=== PATIENT | female | born 1955 | race Caucasian/White ===

== ENCOUNTER → 2018-04-25 | Outpatient (REF) | payer OTHER | LOC: M LAB REF 18:16 | DX: C50.911 Malignant neoplasm of unspecified site of right female breast (principal) ==

== ENCOUNTER 2018-06-05 11:29 | Outpatient (RCR) | payer OTHER | END 2018-06-19 | LOC: M PT 11:29 | DX: Z51.89 Encounter for other specified aftercare (principal); I89.0 Lymphedema, not elsewhere classified; C50.111 Malignant neoplasm of central portion of right female breast; Z17.0 Estrogen receptor positive status [ER+]; Z98.890 Other specified postprocedural states; Z91.89 Other specified personal risk factors, not elsewhere classified | CPT/HCPCS: 97163 ==

== ENCOUNTER → 2018-06-06 | Outpatient (CLI) | payer OTHER ==
[~2018-06-06] MED LIST: GASTROGRAFIN SOLUTION 30ML (Q9963) As Ordered; ISOVUE-370 76% 100ML VIAL (Q9967) As Ordered
== END ==
LOC: M RAD 07:30
DX: R10.31 Right lower quadrant pain (principal); C50.919 Malignant neoplasm of unspecified site of unspecified female breast; K76.89 Other specified diseases of liver
CPT/HCPCS: Q9963

== ENCOUNTER → 2018-06-06 | Outpatient (CLI) | payer OTHER | LOC: M RAD 07:27 | DX: J32.0 Chronic maxillary sinusitis (principal); J34.2 Deviated nasal septum | CPT/HCPCS: 70486 ==

== ENCOUNTER → 2018-06-07 | Outpatient (CLI) | payer OTHER | LOC: M ONCR 13:55 | DX: C50.911 Malignant neoplasm of unspecified site of right female breast (principal); Z17.0 Estrogen receptor positive status [ER+] | CPT/HCPCS: G0463 ==

== ENCOUNTER 2018-06-25 10:08 | Outpatient (RCR) | payer OTHER | END 2018-07-20 | LOC: M ONCR 10:08 | DX: C50.411 Malignant neoplasm of upper-outer quadrant of right female breast (principal); Z98.890 Other specified postprocedural states | CPT/HCPCS: 77300 ==

== ENCOUNTER → 2018-08-15 | Outpatient (CLI) | payer OTHER | LOC: M ONCR 11:29 | DX: C50.411 Malignant neoplasm of upper-outer quadrant of right female breast (principal) | CPT/HCPCS: G0463 ==

== ENCOUNTER → 2018-10-01 | Outpatient (CLI) | payer OTHER ==
[~2018-10-01] MED LIST changes: -GASTROGRAFIN SOLUTION 30ML (Q9963) As Ordered
== END ==
LOC: M RAD 07:34
DX: R91.1 Solitary pulmonary nodule (principal); J70.1 Chronic and other pulmonary manifestations due to radiation; R05 Cough; Z85.3 Personal history of malignant neoplasm of breast
CPT/HCPCS: Q9967

== ENCOUNTER → 2018-10-03 | Outpatient (REF) | payer OTHER ==
[2018-10-03 12:44] LABS: VITAMIN B12 LEVEL 456 PG/ML (247-911)
== END ==
LOC: M LAB REF 12:02
DX: L65.8 Other specified nonscarring hair loss (principal)

== ENCOUNTER → 2021-04-15 | Outpatient (CLI) | payer MEDICARE, OTHER ==
[~2021-04-15] MED LIST changes: +ANAS1TAB2 PO; +CVS1TAB PO; +CYMB1CAP5 PO; +EXEM25TA PO; -ISOVUE-370 76% 100ML VIAL (Q9967) As Ordered; +ISOVUE-370 76% 100ML VIAL As Ordered ONE; +LETR2.5T2 PO; +LORA-674 PO; +NAPR220C14 PO; +SILV40CR EXT; +TRIA37.53 PO; +ZOLP6.2517 PO
--- NOTE | 2021-04-15 15:44 | REPVR ---
PROCEDURE INFORMATION: Exam: CT Chest With Contrast; Diagnostic Exam date and time: 04/15/2021 3:12 PM Age: 66 years old Clinical indication: Cough TECHNIQUE: Imaging protocol: Diagnostic computed tomography of the chest with contrast. 3D rendering (Not supervised by radiologist): MIP and/or 3D reconstructed images were created by the technologist. Radiation optimization: All CT scans at this facility use at least one of these dose optimization techniques: automated exposure control; mA and/or kV adjustment per patient size (includes targeted exams where dose is matched to clinical indication); or iterative reconstruction. Contrast material: ISOVUE 370; Contrast volume: 75 ml; Contrast route: INTRAVENOUS (IV); COMPARISON: CT Chest with contrast 10/01/2018 7:51 AM FINDINGS: Thyroid: Poorly characterized 1.3 cm right thyroid nodule. Lungs: Hyperinflation and interstitial prominence. Stable bilateral subcentimeter nodules including 2 mm right upper lobe, 3 mm left lower lobe, and 6 mm left lower lobe nodules. Based on 2+ years of interval stability, no follow-up imaging is required. Pleural spaces: No pleural effusion. Heart: Coronary artery calcification. Aorta: Ectasia of the thoracic aorta. Lymph nodes: Subcentimeter lymph nodes. Upper abdomen: Fatty infiltration of the liver. Wall thickening in the nondistended stomach. Bones/joints: Schmorl's nodes and mild degenerative change. Soft tissues: Surgical clips in the right axilla. Punctate right breast calcifications. IMPRESSION: 1. Hyperinflation, interstitial prominence, and stable subcentimeter pulmonary nodules 2. Additional findings as described above. COMMENTS: Consistent with the [employer]'s Incidental Findings Committee white paper (J Am Joey Radiol 2015): In patients aged 35 years and older with an incidental thyroid nodule equal to or greater than 1.[address], MRI or extrathyroidal US, further evaluation with dedicated thyroid US is recommended for patients with normal life expectancy and without comorbidities. For smaller nodules without suspicious features, no further evaluation or follow up is recommended. Electronically signed by: Yordy Jaramillo On 04/15/2021 15:44:02 PM
== END ==
LOC: M RAD 14:43
PROVIDERS: ATTEND Internal Medicine
DX: R05 Cough (principal); R91.8 Other nonspecific abnormal finding of lung field
CPT/HCPCS: 71260; Q9967

== ENCOUNTER → 2021-04-30 | Outpatient (CLI) | payer MEDICARE, OTHER ==
[~2021-04-30] MED LIST changes: -ISOVUE-370 76% 100ML VIAL As Ordered ONE
--- NOTE | 2021-04-30 20:01 | REP ---
INDICATION: THYROID NODULE SEEN ON CHEST CT DONE AT [facility]. COMPARISON: Comparison chest CT study 04/15/2021 no other right lobe lesion is seen. No left lobe nodule is appreciated.. TECHNIQUE: High-resolution bilateral thyroid sonography. FINDINGS: Thyroid isthmus is 0.3 cm in thickness. The right lobe dimensions by ultrasound of 4.3 x 1.8 x 1.9 cm. Left lobe measures 3.4 x 1.2 x 1.3 cm. Glandular texture is heterogeneous. There is a solid nodule in the right lobe mid to inferior pole measuring 1.8 x 1.5 x 1.6 cm in greatest diameter. This corresponds to the thyroid nodule visible on CT study from April 15, 2021. IMPRESSION: Solid nodule in the right lobe lower pole containing a few focal microcalcifications. 1.8 cm in greatest diameter. Recommend ultrasound-guided fine needle aspiration. <Electronically signed by Papi Smith > 04/30/211956
== END ==
LOC: M RAD 15:19
PROVIDERS: ATTEND Internal Medicine
DX: E04.1 Nontoxic single thyroid nodule (principal)

== ENCOUNTER → 2021-05-18 | Outpatient (REF) | payer MEDICARE, OTHER | LOC: M LAB REF 19:01 | PROVIDERS: ATTEND Internal Medicine Endocrinology, Diabetes & Metabolism | DX: E04.1 Nontoxic single thyroid nodule (principal) ==

== ENCOUNTER → 2024-03-26 | Outpatient (CLI) | payer MEDICARE, OTHER ==
[~2024-03-26] MED LIST changes: +ECOT81TA5 PO; +LORA-1041 PO; -LORA-674 PO; +PHEN15CA6; +ROSU5TAB40; -TRIA37.53 PO; +TRIA37.577 PO; -ZOLP6.2517 PO; +ZOLP6.2526 PO
== END ==
LOC: M PLAIMG 15:22
PROVIDERS: ATTEND Physician Assistant Surgical
DX: M47.892 Other spondylosis, cervical region (principal)